=== PATIENT | male | born 1995 | race American Indian/Alaskan Native ===

== ENCOUNTER 2021-02-17 08:51 | Emergency (ER) | payer SELFPAY ==
[2021-02-17 10:16] VITALS: BP 117/70
--- NOTE | 2021-02-17 10:21 | Emergency Department Report ---
ED Lower Extremity HPI - General Chief Complaint: Laceration/Recheck/Suture Stated Complaint: RT FOOT INDEX TOE INJURY Time Seen by Provider: 02/17/21 10:15 Source: patient Mode of arrival: Ambulatory Limitations: No Limitations - History of Present Illness Initial Comments: Patient is a 25-year-old male presents emergency room complaints of a right foot injury that occurred yesterday. Patient states he was changing all bulbs and a large glass globe accidentally fell on his foot and broke. He states he has a small laceration to the right foot. He states he has pain in the foot and the digits. He has been ambulatory. He denies any numbness or weakness. He states his tetanus immunization is up-to-date. No past medical history. No allergies to medications. - Related Data Previous Rx's Medication Instructions Recorded Last Taken Type Mupirocin [Bactroban 2% OINT] 1 applic TP TID #1 tube 02/17/21 Unknown Rx Naproxen 375 mg PO BID PRN #14 tablet 02/17/21 Unknown Rx Allergies Allergy/AdvReac Type Severity Reaction Status Date / Time No Known Allergies Allergy Verified 02/17/21 10:16 ED Review of Systems ROS: Stated complaint: RT FOOT INDEX TOE INJURY Other details as noted in HPI Comment: All other systems reviewed and negative ED Past Medical Hx - Past Medical History Hx Asthma: Yes - Surgical History Past Surgical History?: No - Medications Home Medications: Home Medications Medication Instructions Recorded Confirmed Last Taken Type Mupirocin [Bactroban 2% OINT] 1 applic TP TID #1 tube 02/17/21 Unknown Rx Naproxen 375 mg PO BID PRN #14 tablet 02/17/21 Unknown Rx ED Physical Exam - General Limitations: No Limitations General appearance: alert, in no apparent distress - Head Head exam: Present: atraumatic, normocephalic - Eye Eye exam: Present: normal appearance - ENT ENT exam: Present: mucous membranes moist - Extremities Exam Extremities exam: Present: full ROM (neurovascularly intact right foot), other (small 0.5 cm laceration present to the right dorsal distal foot superior to the digits, appears to be healing, is not open at this time, there is ttp to the right dorsal foot and right 2nd and third toes, FROM of the RLE, no deformity, no obvious foreign body, no muscle/tendon involvement) - Neurological Exam Neurological exam: Present: alert, oriented X3 - Psychiatric Psychiatric exam: Present: normal affect, normal mood - Skin Skin exam: Present: warm, dry ED Course Vital Signs 02/17/21 10:15 Temperature 98.0 F Pulse Rate 63 Respiratory 18 Rate Blood Pressure 117/70 O2 Sat by Pulse 98 Oximetry ED Lower Extremity MDM - Radiology Data Radiology results: report reviewed Ordering Physician: RICARDO FERNANDEZ Date of Service: 02/17/21 Procedure(s): XR foot 3+V RT Accession Number(s): [id number] cc: RICARDO FERNANDEZ Fluoro Time In Minutes: XR foot 3+V RT INDICATION / CLINICAL INFORMATION: glass globe broke on right foot. COMPARISON: None available. FINDINGS: No acute fracture. Normal alignment. Joint spaces are preserved. No destructive osseous lesion or suspicious periosteal reaction. Impression: 1.No acute fracture. Signer Name: Jono Ambriz MD Signed: 02/17/2021 10:56 AM Workstation Name: [id number] Transcribed By: Dictated By: Jono Ambriz MD Electronically Authenticated By: Jono Ambriz MD Signed Date/Time: 02/17/21 1056 DD/ 1052 TD/TT: - Medical Decision Making Patient is a 25-year-old male presents emergency room complaints of a right foot injury that occurred yesterday. Patient states he was changing all bulbs and a large glass globe accidentally fell on his foot and broke. He states he has a small laceration to the right foot. He states he has pain in the foot and the digits. He has been ambulatory. He denies any numbness or weakness. He states his tetanus immunization is up-to-date. No past medical history. No allergies to medications. Vitals are normal. On examination:small 0.5 cm laceration present to the right dorsal distal foot superior to the digits, appears to be healing, is not open at this time, there is ttp to the right dorsal foot and right 2nd and third toes, FROM of the RLE, no deformity, no obvious foreign body, no muscle/tendon involvement, neurovascularly intact. XR right foot: 1.No acute fracture. Laceration is small and appears to be in the healing process and it has been greater than 12 hours, does not need repair at this time, no signs of infection at this time. Symptoms likely related to foot contusion and small laceration, patient has full range of motion, there are no obvious foreign bodies or muscle or tendon involvement. X-ray does not show any obvious radiopaque foreign body. Wound care performed by shower maid. Patient is requesting crutches as he states it is uncomfortable to bear weight on the foot and he states yes to go to a dentist appointment. Crutches and crutch instructions were given by shower maid. Advised patient Please use medication as prescribed. May ice for 15 minutes at a time, rest, elevate the foot. Please keep area clean, dry, covered. Wash with antibacterial soap and water pat dry. No hot tub or pool. Follow-up with your primary care doctor. Follow-up with orthopedic doctor if symptoms or not improving. Return to emergency room for any new or worsening symptoms. Critical care attestation.: If time is entered above; I have spent that time in minutes in the direct care of this critically ill patient, excluding procedure time. ED Disposition Clinical Impression: Foot contusion Qualifiers: Encounter type: initial encounter Laterality: right Qualified Code(s): S90.31XA - Contusion of right foot, initial encounter Foot laceration Qualifiers: Encounter type: initial encounter Laterality: right Qualified Code(s): S91.311A - Laceration without foreign body, right foot, initial encounter Disposition: 01 HOME / SELF CARE / HOMELESS Is pt being admited?: No Does the pt Need Aspirin: No Condition: Stable Instructions: Foot Contusion, [id number], Laceration Care, Adult Additional Instructions: Please use medication as prescribed. May ice for 15 minutes at a time, rest, elevate the foot. Please keep area clean, dry, covered. Wash with antibacterial soap and water pat dry. No hot tub or pool. Follow-up with your primary care doctor. Follow-up with orthopedic doctor if symptoms or not improving. Return to emergency room for any new or worsening symptoms. Prescriptions: Mupirocin [Bactroban 2% OINT] 1 applic TP TID #1 tube Naproxen 375 mg PO BID PRN #14 tablet PRN Reason: pain Referrals: BONNY DELEON MD [Staff Physician] - 3-5 Days JUNIOR LANDRUM MD [Staff Physician] - 3-5 Days (orthopedic) Time of Disposition: 11:02 Print Language: IRISH
[2021-02-17] MEDS ORDERED: NEOMY 3.5 MG/BACIT 400 UNITS/POLY B 5000 UNITS/GM OINT PACKET TP ONE (10:24)
--- NOTE | 2021-02-17 11:01 | XRay Report ---
XR foot 3+V RT INDICATION / CLINICAL INFORMATION: glass globe broke on right foot. COMPARISON: None available. FINDINGS: No acute fracture. Normal alignment. Joint spaces are preserved. No destructive osseous lesion or s uspicious periosteal reaction. Impression: 1.No acute fracture. Signer Name: Jono Ambriz MD Signed: 02/17/2021 10:56 AM Workstation Name: [id number]
== END 2021-02-17 12:09 | disposition home or self-care (01) ==
LOC: ED 08:51
DX: S90.31XA Contusion of right foot, initial encounter (principal); S91.311A Laceration without foreign body, right foot, initial encounter; X58.XXXA Exposure to other specified factors, initial encounter; Y93.9 Activity, unspecified; Y92.9 Unspecified place or not applicable; Y99.9 Unspecified external cause status; J45.909 Unspecified asthma, uncomplicated
CPT/HCPCS: 99283